=== PATIENT | female | born 2005 | race Caucasian/White ===

== ENCOUNTER 2025-05-22 10:42 | Emergency (ER) | payer OTHER, SELFPAY ==
[2025-05-22 10:42] VITALS: BP 134/82; PULSE 100; RESP 18; TEMP 36.9; O2SAT 99
[2025-05-22 10:45] VITALS: O2SAT 100
--- NOTE | 2025-05-22 10:55 | ED_ITS ---
HPI - URI/Sore Throat General Chief Complaint: Upper Respiratory Infection Stated Complaint: cough x 1 week Time Seen by Provider: 05/22/25 10:55 Source: patient and family Mode of arrival: ambulatory Limitations: no limitations History of Present Illness HPI Narrative: Patient is a 19-year-old female with a cough for the past week and vomit x3 this morning. She was coughing a lot and the vomit occurred. No concerns for and no sexual activity. She is also on control to regulate her cycle. MD elicited complaint: fever and cough Pertinent past history: other (Menorrhagia) Onset (ago): week(s) (One) Consistency: constant Severity: moderate Pain scale (0-10): 0 Description of mucous: clear Able to tolerate fluids by mouth: Yes Exacerbating factors: nothing Relieving factors: nothing Context: sick contacts (Patient is in college (no meningeal complaints)) Associated symptoms: fever (Resolved at this time) Treatments prior to arrival: cold medicine Related Data Allergies Allergy/AdvReac Type Severity Reaction Status Date / Time No Known Allergies Allergy Verified 05/22/25 10:54 Review of Systems Review of Systems: All systems reviewed & are unremarkable except as noted in HPI and below Constitutional: Constitutional: Reports no additional constitutional complaints Eyes: Eyes: Reports no additional eye complaints ENT: Reports system reviewed and no additional complaints, except as documen maricruz Cardiovascular: Cardiovascular: Reports no additional cardiovascular complaints Respiratory: Respiratory: Reports no additional respiratory complaints Gastrointestinal: Gastrointestinal: Reports no additional gastrointestinal complaints Genitourinary: Genitourinary: Reports no additional female genitourinary complaints Musculoskeletal: Musculoskeletal: Reports no additional musculoskeletal complaints Integumentary/Breasts: Skin/Breast: Reports system reviewed and no additional complaints, except as docu Neurologic: Reports system reviewed and no additional complaints, except as documented Psychiatric: Psychiatric: Reports no additional psychiatric complaints Endocrine: Endocrine: Reports no additional endocrine complaints Hematologic/Lymphatic: Hematologic/Lymphatic: Reports no additional hematologic/lymphatic complaints Allergic/Immunologic: Allergic/Immunologic: Reports no additional allergic/immunologic complaints Exam Const: General: healthy appearing Nutritional Appearance: well nourished Orientation/consciousness: patient oriented x3 Limitations: no limitations HENMT: Head: normal to inspection Ears: external ears normal Face/Nose /Sinus: Normal external nose present Other: Red oropharynx without pus or tonsillar hypertrophy Eyes: Conjunctivae: conjunctivae normal Pupils: Equal, round and reactive pupils present EOM: EOMs intact bilaterally Direct Ophthalmoscopy: no photophobia Neck: Neck: normal visual inspection Chest: Chest palpation & inspection: normal inspection of the chest Resp: Effort & Inspection: normal respiratory effort and not labored Auscultation: clear to auscultation bilaterally and no crackles Cardio: Rate: regular rate Rhythm: regular rhythm Heart sounds: no murmurs GI: Inspection: non-distended GI Palp: Yes Soft to palpation and No Tenderness to palpation present (GI) Auscultation: normal bowel sounds : General: Yes bladder normal to palpation Back/Spine/Pelvis: Back: no CVA tenderness Skin: General skin exam: normal color Rashes: no rashes Wounds: no wounds Neuro: General: patient oriented x3, moves all extremities, no meningeal signs, no focal motor deficits and CN's II-XI intact bilaterally Cranial nerves: Yes Nystagmus not present Speech: normal speech Gait exam (Neuro): Normal gait present Extrem: General: normal to inspection, no clubbing, cyanosis or edema and no pedal edema Psych: Mental Status: mental status grossly normal Affect: normal affect Attitude: cooperative Course Vital Signs Vital signs: Vital Signs Temperature 36.9 C 05/22/25 10:42 Pulse Rate 100 05/22/25 10:42 Respiratory Rate 18 05/22/25 10:42 Blood Pressure 134/82 05/22/25 10:42 Pulse Oximetry 99 05/22/25 10:42 Oxygen Delivery Room Air 05/22/25 10:42 Temperature 36.9 C 05/22/25 10:42 Pulse Rate 100 05/22/25 10:42 Respiratory Rate 18 05/22/25 10:42 Blood Pressure 134/82 05/22/25 10:42 Pulse Oximetry 100 05/22/25 10:45 Oxygen Delivery Room Air 05/22/25 10:45 [facility] Narrative Medical decision making narrative: Patient is a 19-year-old female with a cough and vomiting for the past week and fever that resolved. Jim Pham. [id number] meds as needed. Differential Diagnosis Differential Diagnosis: Tonsillitis, pharyngitis, influenza, COVID Lab Data MDM Lab Attestation statement: I personally reviewed the patient's lab results. Labs: Lab Results 05/22/25 Range/Units 10:55 Influenza A (RT-PCR) Positive A (Negative) Influenza B (RT-PCR) Negative (Negative) RSV (RT-PCR) Negative (Negative) SARS-CoV-2 RNA (RT-PCR) Negative (Negative) Discharge Plan Discharge Clinical Impression: Influenza A Patient Disposition: Home Condition: Stable Instructions: Influenza (DC) Patient Language: Romanian Prescriptions: New benzonatate 200 mg capsule 200 mg PO TID PRN (Reason: cough) Qty: 20 0RF Follow-up/Referrals: Hugo,Angela Manrique M.D. [Primary Care Provider, PROGRAM PRODUCTION SPECIALIST] Time of Disposition: 12:01
--- OUTSIDE RECORDS SUMMARY | 2025-05-22 11:16 | XMS_ITS ---
Author Organization Unknown Address [address] [place] [address] [phone] Phone Care Team Providers Care Medicine Worker Name Role Phone MARK MAYNARD Attending Unavailable NO PCP Primary Unavailable Immunization Immunization Date Status Additional Notes Code Code System MMR 2005 Completed 03 CVX MMR 2005 Completed 03 CVX MMR 01/24/2010 Completed 03 CVX MMR 01/24/2010 Completed 03 CVX Hep B, adolescent or pediatric 2004 Completed 08 CVX Hep B, adolescent or pediatric 2004 Completed 08 CVX Hep B, adolescent or pediatric 2004 Completed 08 CVX IPV 2004 Completed 10 CVX IPV 2004 Completed 10 CVX IPV 2004 Completed 10 CVX IPV 2004 Completed 10 CVX IPV 01/24/2010 Completed 10 CVX IPV 01/24/2010 Completed 10 CVX influenza, split (incl. purified surface antigen) 03/22/2009 Completed 15 CV X influenza, split (incl. purified surface antigen) 03/22/2009 Completed 15 CV X Hib, unspecified formulation 2004 Completed 17 CVX Hib, unspecified formulation 2004 Completed 17 CVX Hib, unspecified formulation 2004 Completed 17 CVX Hib, unspecified formulation 09/03/2005 Completed 17 CVX Hib, unspecified formulation 09/03/2005 Completed 17 CVX DTaP 2004 Completed 20 CVX DTaP 2004 Completed 20 CVX DTaP 2004 Completed 20 CVX DTaP 09/03/2005 Completed 20 CVX DTaP 09/03/2005 Completed 20 CVX DTaP 01/24/2010 Completed 20 CVX DTaP 01/24/2010 Completed 20 CVX varicella 2005 Completed 21 CVX varicella 01/24/2010 Completed 21 CVX varicella 01/24/2010 Completed 21 CVX Hep A, pediatric, unspecifie d formulation 09/15/2008 Completed 31 CVX Hep A, pediatric, unspecifie d formulation 09/15/2008 Completed 31 CVX Hep A, pediatric, unspecifie d formulation 01/24/2010 Completed 31 CVX Hep A, pediatric, unspecifie d formulation 01/24/2010 Completed 31 CVX pneumococcal conjugate PCV 7 2004 Completed 100 CVX pneumococcal conjugate PCV 7 03/05/2005 Completed 100 CVX pneumococcal conjugate PCV 7 2005 Completed 100 CVX pneumococcal conjugate PCV 7 09/03/2005 Completed 100 CVX pneumococcal conjugate PCV 7 09/03/2005 Completed 100 CVX Tdap 03/07/2017 Completed 115 CVX Tdap 03/07/2017 Completed 115 CVX Meningococcal MCV4O 03/07/2017 Completed 136 CVX Meningococcal MCV4O 03/07/2017 Completed 136 CVX Influenza, split virus, trivalent, preservative 02/21/2012 Completed 141 CVX Influenza, split virus, trivalent, preservative 02/21/2012 Completed 141 CVX Influenza, live, quadrivalen t, intranasal 03/17/2014 Completed 149 CVX Influenza, live, quadrivalen t, intranasal 03/17/2014 Completed 149 CVX Influenza, split virus, quadrivalent, PF 06/11/2013 Completed 150 CVX Influenza, split virus, quadrivalent, PF 03/07/2017 Completed 150 CVX Influenza, split virus, quadrivalent, PF 03/07/2017 Completed 150 CVX meningococcal conjugate quadrivalent, MenACWY-TT (MCV4) 03/03/2023 Completed 203 CVX meningococcal conjugate quadrivalent, MenACWY-TT (MCV4) 03/03/2023 Completed 203 CVX COVID-19, mRNA, LNP-S, PF, 3 0 mcg/0.3 mL dose 12/02/2020 Completed 208 CVX COVID-19, mRNA, LNP-S, PF, 3 0 mcg/0.3 mL dose 12/23/2020 Completed 208 CVX COVID-19, mRNA, LNP-S, PF, 3 0 mcg/0.3 mL dose 12/23/2020 Completed 208 CVX Results RESPIRATORY 4 PLEX COVID FLU RSV PCR - Collect Date/Time: 07/17/2023 13:23 [facility] ID: [id number] [address] [place], [place], [id number] LOINC: 66382-7 Test Value Unit Reference Range Code Code System Flag SARS CoV2 PCR NEGATIVE FLU A PCR NEGATIVE FLU B PCR POSITIVE A RSV PCR NEGATIVE SEND TO [facility]? YES A Social History Type Status Start Date End Date Code Code Syst em Smoking History Unknown if ever smoked [id number] Sex Female Hospital Discharge Instructions Should you have any questions prior to discharge, please contact a member of your healthcare team. If you have left the hospital and have any questions, please contact your primary care physician. Reason For Referral No Data Found Plan of Treatment No Data Found Encounters Encounter Diagnosis Start Date Code Code Sys tem Nasal congestion 07/17/2023 [id number] SNOMED-CT Personal Care Team Section
--- OUTSIDE RECORDS SUMMARY | 2025-05-22 11:16 | XMS_ITS | Clinical Summary ---
Author Organization [facility] Address [address] [place] [address] Care Team Providers Care Corporate Traffic Manager Name Role Phone John Kelley MD Primary Care Provider Allergies No known active allergies Social History Tobacco Use Types Packs/Day Years Used Date Smoking Tobacco: Never Assessed Personal Safety Answer Date Recorded Have you ever been in or are you currently in a harmful physical or emotional relationship or is someone making you feel afraid or unsafe? Denies 08/25/2024 Comments No Sex and Gender Information Value Date Recorded Sex Assigned at Not on file Legal Sex Female 6:36 AM [employer] Gender Identity Not on file Sexual Orientation Not on file Last Filed Vital Signs Vital Sign Reading Time Taken Comments Blood Pressure 140/82 08/25/2024 10:38 AM CDT Pulse 101 08/25/2024 10:38 AM CDT Temperature 36.6 C (97.9 F) 08/25/2024 8:31 AM CDT Respiratory Rate 16 08/25/2024 10:38 AM CDT Oxygen Saturation 100% 08/25/2024 10:38 AM CDT Inhaled Oxygen Concentration - - Weight 60.3 kg (133 lb) 08/25/2024 8:31 AM CDT Height 157.5 cm (5' 2) 08/25/2024 8:31 AM CDT Body Mass Index 24.33 08/25/2024 8:31 AM CDT Plan of Treatment Health Maintenance Due Date Last Done Comments Depression Screening 2004 Hepatitis C Screening 2004 HPV Vaccines (1 - 3-dose series) 2019 Meningococcal B Vaccine (1 o f 2 - Standard) 2020 Regular Well Visit/Exam 18-64 2022 Covid-19 Vaccine (3 - 2024-2 6 season) 2025 12/23/2020, 12/02/2020 Influenza Vaccine (#1) 2025 7, 03/17/2014, 06/11/2013, Additional history exists DTaP/Tdap/Td Vaccine (7 - Td or Tdap) 03/07/2027 03/07/2017, 01/24/2010, 09/03/2005, Additional history exists Hepatitis B Screening Completed 2004 , 2004, 2004 Pneumococcal vaccine <65 Completed 006, 2005, 03/05/2005, Additional history exists Varicella Vaccines Completed 01/24/2010, 2005 Meningococcal Vaccine Completed 03/03/2023, 017 Insurance [employer] [facility] [employer] [facility] Care Teams Corporate Traffic Manager Relationship Specialty Start Date End Date John Kelley MD [address] [place] [address] PCP - General Pediatrics 08/25/24
[2025-05-22 11:39] LABS: Influenza A QL RT-PCR Positive (Negative); Influenza B QL RT-PCR Negative (Negative); RSV RNA, RT-PCR Negative (Negative); SARS-CoV-2 RNA PCR Negative (Negative)
[2025-05-22 12:10] VITALS: BP 119/73; PULSE 65; RESP 16; TEMP 36.9; O2SAT 99
== END 2025-05-22 12:10 | disposition home or self-care (01) ==
PROVIDERS: Emergency Provider Emergency Medicine; PCP Obstetrics & Gynecology
DX: J10.1 Influenza due to other identified influenza virus with other respiratory manifestations (principal); Z20.822 Contact with and (suspected) exposure to COVID-19
CPT/HCPCS: 87637; 99283